=== PATIENT | male | born 1995 | race African-American/Black ===

== ENCOUNTER 2024-04-19 05:23 | Emergency (ER) | payer SELFPAY ==
[~2024-04-19] VITALS: Ht 162.6 cm; Wt 63.6 kg
[2024-04-19] MEDS: NS 1,000 ML IV ONE ×2 (06:01→06:55)
[2024-04-19 06:03] LABS: BASO % 0.6 % (0.0-1.0); EOS # 0.3 10^3/uL (0.0-0.5); EOS % 6.8 % (0.0-3.0); HEMATOCRIT 47.3 % (42.0-52.0); HEMOGLOBIN 15.5 g/dl (13.5-17.5); LYMPH # 2.5 10^3/uL (1.5-5.0); LYMPH % 50.7 % (24.0-44.0); MEAN CORPUSCULAR HEMOGLOBIN 31.2 pg (27.0-33.0); MEAN CORPUSCULAR HGB CONC 32.8 g/dl (32.0-36.5); MEAN CORPUSCULAR VOLUME 95.2 fl (80.0-96.0); MONO # 0.5 10^3/uL (0.0-0.8); MONO % 10.5 % (2.0-8.0); NEUTROPHILS # 1.5 10^3/uL (1.5-8.5); NEUTROPHILS % 31.4 % (36.0-66.0); PLATELET COUNT, AUTOMATED 260 10^3/uL (150-450); RED BLOOD COUNT 4.97 10^6/uL (4.30-6.10); WHITE BLOOD COUNT 4.9 10^3/uL (4.0-10.0)
[2024-04-19 06:26] LABS: LIPASE 25 U/L (12-53)
[2024-04-19 06:27] LABS: AMYLASE 52 U/L (30-118)
[2024-04-19 06:28] LABS: ALBUMIN 2.8 G/DL (3.2-5.2); ALKALINE PHOSPHATASE 71 U/L (40-129); ALT/SGPT 19 U/L (7.0-40); AST/SGOT 21 U/L (<34); BILIRUBIN,DIRECT < 0.1 MG/DL (<0.4); BILIRUBIN,TOTAL 0.2 MG/DL (0.3-1.2); BLOOD UREA NITROGEN 11 MG/DL (9-23); CALCIUM LEVEL 6.9 MG/DL (8.5-10.1); CARBON DIOXIDE LEVEL 24 MMOL/L (20-31); CHLORIDE LEVEL 114 MMOL/L (98-107); CREATININE FOR GFR 0.55 MG/DL (0.70-1.30); GLOMERULAR FILTRATION RATE > 60.0 (>60); GLUCOSE, FASTING 63 MG/DL (60-100); MAGNESIUM LEVEL 1.5 MG/DL (1.8-2.4); PHOSPHORUS LEVEL 3.4 MG/DL (2.5-4.9); POTASSIUM SERUM 3.3 MMOL/L (3.5-5.1); SODIUM LEVEL 147 MMOL/L (136-145); TOTAL PROTEIN 5.2 G/DL (5.7-8.2)
[2024-04-19 06:33] LABS: CPK CREATINE PHOSPHOKINASE 601 U/L (46-171); MB/CK RELATIVE INDEX 0.66 (< OR =4)
[2024-04-19] MEDS: POTASSIUM CHLORIDE 10% LIQ 20MEQ/15ML UDC PO ONE (06:41)
[2024-04-19] MEDS: MAG SULF 1GM/100ML (MAG RUN) 1 GM in IV 1 EA IV ONE (06:42)
[2024-04-19] MEDS: ACETAMINOPHEN 500 MG TAB PO ONE (09:03)
[2024-04-19] MEDS: KETOROLAC 30 MG/ML 1ML VIAL IV ONE (09:04)
[2024-04-19 09:30] VITALS: BP 127/56; TEMP 98.3; O2SAT 99
== END 2024-04-19 10:35 | disposition home or self-care (01) ==
LOC: M ED 05:23 → EDBD 05:23 → M ED 10:35
DX: T68.XXXA Hypothermia, initial encounter (principal); X31.XXXA Exposure to excessive natural cold, initial encounter; Y92.89 Other specified places as the place of occurrence of the external cause; Y93.89 Activity, other specified; Y99.9 Unspecified external cause status
CPT/HCPCS: 36415; 71045; 80048; 80076; 82150; 82550; 82553; 83605; 83690; 83735; 84100; 84484; 85025; 93005; 93041; 94760; 96361; 96374; 96375; 99285; J1885; J3475